=== PATIENT | female | born 1995 ===

== ENCOUNTER 2024-02-22 08:37 | Outpatient (REF) | payer OTHER, SELFPAY ==
--- NOTE | ~2024-02-22 | US_ITS ---
EXAMINATION: US PELVIS CLINICAL INFORMATION: For evaluation of polycystic ovary syndrome and intrauterine device placement; the last menstrual period was on 01/27/2024. COMPARISON: None available. TECHNIQUE: Ultrasound of the pelvis is performed using both transabdominal and transvaginal transducers along with Doppler. Transvaginal imaging is performed due to inadequate visualization transabdominally. FINDINGS: Uterus: The uterus is anteverted and anteflexed. The uterus measures 8.4 x 3.2 x 4.0 cm. An intrauterine device is seen, situated somewhat low within the endometrial canal. The double wall endometrial thickness is 4 mm. The uterus is smooth in contour and has normal myometrial echogenicity. No visible fibroid. Adnexa: Both ovaries are visualized. There is normal color flow to the adnexa. There is no ovarian torsion. There is no pelvic ascites or fluid collection. Right ovary measures 2.3 x 1.6 x 1.4 cm, volume 2.7 mL. A few scattered small physiologic follicles are noted. Left ovary measures 2.7 x 1.6 x 1.7 cm, volume 3.8 mL. There are rare physiologic follicles. US/US pelvic and transvaginal IMPRESSION: 1. An intrauterine device is seen, situated somewhat low within the endometrial canal. 2. There are a few scattered physiologic follicles noted within the ovaries. The ultrasound appearance is not characteristic of polycystic ovary syndrome.
== END 2024-02-22 08:38 | disposition home or self-care (01) ==
LOC: HO.UMASIMG 08:37
PROVIDERS: Visit Provider Family Medicine
DX: R63.5 Abnormal weight gain (principal); N93.8 Other specified abnormal uterine and vaginal bleeding
CPT/HCPCS: 76830; 76856